=== PATIENT | male | born 1945 | race Caucasian/White ===

== ENCOUNTER 2018-07-13 09:01 | Day surgery (SDC) | payer MEDICARE, OTHER ==
[~2018-07-13 09:01] MED LIST: BUPIVACAINE HCL 0.75% INJ/PF (7.5 MG/1 ML) 10 ML SDV OD PRN; KETOROLAC TROMETHAMINE 0.45% 4 DROP/0.4 ML DROPERETTE OD PRN; LIDOCAINE 4% INJ/PF (40 MG/ML) 5 ML AMPUL OD PRN
[2018-07-13] MEDS ORDERED: CHONDR SU A NA/HYALUR INTRAOC KIT (SURGICARE) ONE (09:03)
[2018-07-13] MEDS ORDERED: EPINEPHRINE INJ/PF 1 MG/1 ML AMPULE ONE (09:03)
[2018-07-13] MEDS: TETRACAINE HCL 0.5% OPH SOLN 0.6 ML DROPERETTE OD PRN ×2 (10:04→10:33)
[2018-07-13] MEDS: CYCLOPENTOLATE 0.2%/PHENYLEPHRINE 1% OPH SOLN 2 ML OD PRN ×3 (10:05→10:30)
[2018-07-13] MEDS: TROPICAMIDE 1% OPH SOLN 3 ML OD PRN ×3 (10:05→10:30)
[2018-07-13] MEDS: BESIFLOXACIN HCL 0.6% OPH SUSP 5 ML BOTTLE OD PRN ×4 (10:05→11:20)
[2018-07-13] MEDS ORDERED: MIDAZOLAM 2 MG/2 ML INJ ONE (10:37)
[2018-07-13] MEDS ORDERED: FENTANYL CITRATE INJ/PF 100 MCG/2 ML AMPUL ONE (10:37)
[2018-07-13] MEDS: LIDOCAINE 1% INJ-PF (10 MG/ML) 30 ML SDV ONE ×2 (11:05)
--- NOTE | 2018-07-13 11:46 | [facility] DISCHARGE SUMMARY E ---
[facility] Discharge Summary NAME: PITER HERRMANN AGE: 73Y ADMITTED: 07/13/2018 DISCHARGED: 07/13/2018 HOSPITAL COURSE: The patient is a 73-year-old gentleman who underwent uneventful cataract extraction with Symfony toric IOL, right eye, on 07/13/2018. He will be discharged to home. He was instructed to resume preoperative medications, to take Tylenol as needed for discomfort, to keep his eye shielded, to use Besivance, Prolensa, and Durezol at 3:00 p.m. and 8:00 p.m., and to follow up in my office in 1 day. DICTATING PHYSICIAN: RENETTA BEACH M.D. [id number] PHY#: [id number] ID: [id number] JOB#: [id number] ACCT: [id number] cc:RENETTA BEACH M.D. >
--- NOTE | 2018-07-13 11:46 | [facility] OPERATIVE REPORT E ---
[facility] Operative Report NAME: PITER HERRMANN AGE: 73Y DATE OF SURGERY: 07/13/2018 ROOM: PREOPERATIVE DIAGNOSIS: Cataract, right eye. POSTOPERATIVE DIAGNOSIS: Cataract, right eye. PROCEDURE PERFORMED: Phacoemulsification with Symfony toric intraocular lens, right eye. SURGEON: RENETTA BEACH M.D. ANESTHESIA: Topical with MAC. DESCRIPTION OF PROCEDURE: The patient was brought to the operating room and placed on the operative table. Following tetracaine drops, topical anesthesia was administered. This consisted of instrument wipe pledgets soaked in a solution of 4% Xylocaine mixed with 0.75% Marcaine in a 1:2 ratio. A 2 x 1 cm pledget was placed in the superior fornix. A 1 x 1 cm pledget was placed in the inferior fornix. The eye was patched shut for 5 minutes. The patch was removed. The eye was sterilely prepped and draped in the usual manner. Lid speculum was placed in the eye. The pledgets were removed, 4-0 black silk sutures were placed around the superior and the inferior rectus muscles to be used as traction. A conjunctival peritomy was made at the 10 o'clock position. Hemostasis was obtained with bipolar cautery. A posterior limbal groove was created using a crescent knife and dissected anteriorly towards the cornea. A sharp point blade was used to create a paracentesis site at the 2 o'clock position. A 2.4 mm keratome was used to enter the anterior chamber through the groove. Viscoelastic was injected into the anterior chamber. An anterior capsulotomy was performed using Utrata forceps in a capsulorrhexis fashion. Hydrodissection and hydrodelineation were performed. Phacoemulsification was performed in azdwyx-imn-jeehykm technique. Total phaco time, 5.54 CDE. Following this, the I/A unit was used to remove residual cortex. Viscoelastic was injected into the capsular bag. Intraocular lens Model [id number], 21.5 diopters, serial number [id number] was placed in the capsular bag. The I/A unit was used to remove residual viscoelastic. The wound was seen to be watertight under high and low pressure, and no sutures were placed. The intraocular lens was well centered. The pressure was adjusted in the eye to normal pressure. The 4-0 black silk sutures and lid speculum were removed. The eye was shielded after Besivance drops were placed. The patient tolerated the procedure well and was sent to the recovery room in good condition. DICTATING PHYSICIAN: RENETTA BEACH M.D. [id number] PHY#: [id number] ID: [id number] JOB#: [id number] ACCT: [id number] cc:RENETTA BEACH M.D. >
== END 2018-07-13 12:05 | disposition home or self-care (01) ==
LOC: SC 09:01
PROVIDERS: ATTEND Ophthalmology
DX: H25.813 Combined forms of age-related cataract, bilateral (principal); I10 Essential (primary) hypertension; E11.9 Type 2 diabetes mellitus without complications; H04.123 Dry eye syndrome of bilateral lacrimal glands; Z87.891 Personal history of nicotine dependence; Z79.899 Other long term (current) drug therapy; Z79.84 Long term (current) use of oral hypoglycemic drugs; I25.2 Old myocardial infarction
CPT/HCPCS: 66984; 82962; V2788; J2250; J3490 ×4; A9270; J0171; J3010; 142

== ENCOUNTER 2018-07-27 08:40 | Day surgery (SDC) | payer MEDICARE, OTHER ==
[~2018-07-27 08:40] MED LIST changes: -BUPIVACAINE HCL 0.75% INJ/PF (7.5 MG/1 ML) 10 ML SDV OD PRN; +BUPIVACAINE HCL 0.75% INJ/PF (7.5 MG/1 ML) 10 ML SDV OS PRN; -KETOROLAC TROMETHAMINE 0.45% 4 DROP/0.4 ML DROPERETTE OD PRN; +KETOROLAC TROMETHAMINE 0.45% 4 DROP/0.4 ML DROPERETTE OS PRN; -LIDOCAINE 4% INJ/PF (40 MG/ML) 5 ML AMPUL OD PRN; +LIDOCAINE 4% INJ/PF (40 MG/ML) 5 ML AMPUL OS PRN
[2018-07-27] MEDS ORDERED: MIDAZOLAM 2 MG/2 ML INJ ONE (09:04)
[2018-07-27] MEDS: TROPICAMIDE 1% OPH SOLN 3 ML OS PRN ×3 (09:42→10:05)
[2018-07-27] MEDS: BESIFLOXACIN HCL 0.6% OPH SUSP 5 ML BOTTLE OS PRN ×3 (09:42→10:59)
[2018-07-27] MEDS: CYCLOPENTOLATE 0.2%/PHENYLEPHRINE 1% OPH SOLN 2 ML OS PRN ×3 (09:42→10:05)
[2018-07-27] MEDS: TETRACAINE HCL 0.5% OPH SOLN 0.6 ML DROPERETTE OS PRN ×2 (09:42→10:05)
[2018-07-27] MEDS ORDERED: EPINEPHRINE INJ/PF 1 MG/1 ML AMPULE ONE (09:57)
[2018-07-27] MEDS ORDERED: CHONDR SU A NA/HYALUR INTRAOC KIT (SURGICARE) ONE (09:58)
[2018-07-27] MEDS ORDERED: LIDOCAINE 1% INJ-PF (10 MG/ML) 30 ML SDV ONE (09:58)
--- NOTE | 2018-07-27 16:05 | [facility] OPERATIVE REPORT E ---
[facility] Operative Report NAME: PITER HERRMANN AGE: 73Y DATE OF SURGERY: 07/27/2018 ROOM: PREOPERATIVE DIAGNOSIS: CATARACT, LEFT EYE. POSTOPERATIVE DIAGNOSIS: CATARACT, LEFT EYE. PROCEDURE PERFORMED: PHACOEMULSIFICATION WITH POSTERIOR CHAMBER SYMFONY TORIC IOL, LEFT EYE. SURGEON: RENETTA BEACH MD ANESTHESIA: TOPICAL WITH MAC. PROCEDURE: The patient was brought to the Operating Room and placed on the operative table. Patient was placed in the seated position. The 0270 180-degree axis of the eye was marked using a marking level. Following tetracaine drops, topical anesthesia was administered. This consisted of instrument wipe pledgets soaked in a solution of 4% Xylocaine mixed with 0.75% Marcaine in a 1:2 ratio. A 2 x 1 cm pledget was placed in the superior fornix. A 1 x 1 cm pledget was placed in the inferior fornix. The eye was patched shut for 5 minutes. The patch was removed. The eye was sterilely prepped and draped in the usual manner. Lid speculum was placed in the eye. The pledgets were removed. 4-0 black silk sutures were placed around the superior and the inferior rectus muscles to be used as traction. A conjunctival peritomy was made at the 10 o'clock position. Hemostasis was obtained with bipolar cautery. A posterior limbal groove was created using a crescent knife and dissected anteriorly towards the cornea. A sharp point blade was used to create a paracentesis site at the 2 o'clock position. A 2.4 mm keratome was used to enter the anterior chamber through the groove. Viscoelastic was injected into the anterior chamber. An anterior capsulotomy was performed using Utrata forceps in a capsulorrhexis fashion. Hydrodissection and hydrodelineation were performed. Phacoemulsification was performed in xvzdin-iob-gskaydz technique. A total of 6.59 CDE phaco time was used. Prior to placing the lens implants, *------* axis was marked on the eye and the lens was centered at this axis. Following this, the I/A unit was used to remove residual cortex. Viscoelastic was injected into the capsular bag. Intraocular lens model [id number], 21.5 diopters, serial number [id number] was placed in the capsular bag. The I/A unit was used to remove residual viscoelastic. The wound was seen to be watertight under high and low pressure, and no sutures were placed. The intraocular lens was well centered. The pressure was adjusted in the eye to normal pressure. The 4-0 black silk sutures and lid speculum were removed. The eye was shielded after Besivance drops were placed. The patient tolerated the procedure well and was sent to the Recovery Room in good condition. DICTATING PHYSICIAN: RENETTA BEACH M.D. DICTATING PHYSICIAN: RENETTA BEACH M.D. [id number] PHY#: [id number] ID: [id number] JOB#: [id number] ACCT: [id number] cc:RENETTA BEACH M.D. >
--- NOTE | 2018-07-27 16:16 | [facility] DISCHARGE SUMMARY E ---
[facility] Discharge Summary NAME: PITER HERRMANN AGE: 73Y ADMITTED: 07/27/2018 DISCHARGED: 07/27/2018 FINAL DIAGNOSIS: CATARACT, LEFT EYE HOSPITAL COURSE: The patient is a 73-year-old gentleman who underwent uneventful cataract extraction with Symfony Toric intraocular lens on 07/27/18. He will be discharged to home. He is instructed to resume preoperative medications, take Tylenol as needed for discomfort, to keep his eye shielded, to use Predforte, Ketorolac, and Vigamox 3 p.m. and 8 p.m., and to follow up in my office in 1 day. DICTATING PHYSICIAN: RENETTA BEACH M.D. [id number] PHY#: [id number] ID: [id number] JOB#: [id number] ACCT: [id number] cc:RENETTA BEACH M.D. >
== END 2018-07-27 11:47 | disposition home or self-care (01) ==
LOC: SC 08:40
PROVIDERS: ATTEND Ophthalmology
DX: H25.812 Combined forms of age-related cataract, left eye (principal); Z96.1 Presence of intraocular lens; E11.9 Type 2 diabetes mellitus without complications; I10 Essential (primary) hypertension; Z79.84 Long term (current) use of oral hypoglycemic drugs; Z79.899 Other long term (current) drug therapy; Z79.02 Long term (current) use of antithrombotics/antiplatelets; I25.2 Old myocardial infarction; Z79.82 Long term (current) use of aspirin
CPT/HCPCS: 66984; 82962; V2788; J2250; J3490 ×4; A9270; J0171; 142

== ENCOUNTER 2020-08-18 20:10 | Emergency (ER) | payer MEDICARE, OTHER ==
[2020-08-18] MEDS ORDERED: DIPH/PERTUSS(ACELL)/TETANUS VAC/PF 0.5 ML SYR (>=10YO) IM ONE (20:32)
[2020-08-18] MEDS ORDERED: HYDROCODONE/ACETAMINOPHEN 5-325 MG TABLET PO ONE (20:32)
--- NOTE | 2020-08-18 20:34 | ER Document Report ---
ED Medical Screen (RME) - General Chief Complaint: Finger Injury Stated Complaint: FINGER INJURY Time Seen by Provider: 08/18/20 20:31 Primary Care Provider: NARGIS AUSTIN MD [Primary Care Provider] - Follow up as needed Mode of Arrival: Ambulatory Information source: Patient Notes: HPI; 75-year-old male presents to the emergency room after trip and fall at home injuring his left index finger, his right forearm, and bilateral knees. Denies hitting his head. Denies any loss of consciousness. Unknown last tetanus shot. Also complaining of chest pain that started in route to the emergency room. States he took 1 nitro with some relief. PE: Alert and oriented x3. Moderate distress noted. Lungs: Clear to auscultation without rales, rhonchi, wheezes. Heart: Regular rate rhythm without murmurs, rubs, gallops. There is an obvious dislocation fracture noted to the distal aspect of the left index finger. Multiple abrasions noted. Cardiac work-up was initiated no EKG upon arrival as patient did not complain of chest pain until he was in the triage room. I have greeted and performed a rapid initial assessment of this patient. A comprehensive ED assessment and evaluation of the patient, analysis of test results and completion of the medical decision making process will be conducted by additional ED providers. I have specifically instructed the patient or family members with the patient to immediately return to any nursing staff should anything change in the patient's condition or with their chief complaint. TRAVEL OUTSIDE OF THE [place] IN LAST 30 DAYS: No - Related Data Allergies/Adverse Reactions: No Known Allergies Allergy (Verified 07/27/18 10:00) Past Medical History - Past Medical History Cardiac Medical History: Reports: Hx Heart Attack, Hx Hypertension Pulmonary Medical History: Denies: Hx Asthma Neurological Medical History: Denies: Hx Cerebrovascular Accident, Hx Seizures GI Medical History: Denies: Hx Hepatitis, Hx Hiatal Hernia, Hx Ulcer Infectious Medical History: Denies: Hx Hepatitis Past Surgical History: Reports: Hx Open Heart Surgery - stents. Denies: Hx Pacemaker Physical Exam - Vital signs Vitals: Temp Pulse Resp BP Pulse Ox 97.7 F 67 17 127/61 H 98 08/18/20 20:26 08/18/20 20:26 08/18/20 20:26 08/18/20 20:26 08/18/20 20:26 Course - Vital Signs Vital signs: Temp Pulse Resp BP Pulse Ox 97.7 F 67 17 127/61 H 98 08/18/20 20:26 08/18/20 20:26 08/18/20 20:26 08/18/20 20:26 08/18/20 20:26 Doctor's Discharge - Discharge Referrals: NARGIS AUSTIN MD [Primary Care Provider] - Follow up as needed
--- NOTE | 2020-08-18 21:01 | EKG REPORT ---
SEVERITY:- ABNORMAL ECG - NSR 80/MIN, FIRST DEGREE AVB COMPLETE LBBB. : Confirmed by: Surinder Miller MD 18-Aug-2020 21:00:35
[2020-08-18 21:18] LABS: ABSOLUTE EOSINOPHILS # (AUTO) 0.3 10^3/uL (0.0-0.6); ABSOLUTE LYMPHOCYTES (AUTO) 1.9 10^3/uL (0.5-4.7); ABSOLUTE MONOCYTES (AUTO) 0.6 10^3/uL (0.1-1.4); ABSOLUTE NEUT (AUTO) 5.1 10^3/uL (1.7-8.2); BASOPHILS % (AUTO) 0.6 % (0-2); EOSINOPHILS % (AUTO) 3.4 % (0-6); HEMOGLOBIN 13.9 g/dL (13.5-17.0); LYMPHOCYTES % (AUTO) 24.4 % (13-45); MEAN CORPUSCULAR HEMOGLOBIN 31.3 pg (27.0-33.4); MEAN CORPUSCULAR HGB CONC 34.7 g/dL (32.0-36.0); MEAN CORPUSCULAR VOLUME 90 fl (80-97); PLATELET COUNT 212 10^3/uL (150-450); RED BLOOD COUNT 4.44 10^6/uL (4.35-5.55); RED CELL DISTRIBUTION WIDTH 13.1 % (11.5-14.0); SEGMENTED NEUTROPHILS % (AUTO) 64.6 % (42-78); TOTAL CELLS COUNTED % (AUTO) 100 %; WHITE BLOOD COUNT 7.9 10^3/uL (4.0-10.5)
[2020-08-18 21:31] LABS: ALBUMIN 3.9 g/dL (3.5-5.0); ALKALINE PHOSPHATASE 110 U/L (38-126); ANION GAP 10 (5-19); ASPARTATE AMINO TRANSFERASE 20 U/L (17-59); BILIRUBIN,DIRECT 0.3 mg/dL (0.0-0.4); BILIRUBIN,TOTAL 0.7 mg/dL (0.2-1.3); BLOOD UREA NITROGEN 21 mg/dL (7-20); CALCIUM 9.2 mg/dL (8.4-10.2); CARBON DIOXIDE 25 mmol/L (22-30); CHLORIDE 102 mmol/L (98-107); CREATINE KINASE 71 U/L (55-170); GLUCOSE 349 mg/dL (75-110); POTASSIUM 4.7 mmol/L (3.6-5.0); TOTAL PROTEIN 6.9 g/dL (6.3-8.2)
--- NOTE | 2020-08-18 21:33 | RADIOLOGY REPORT (SQ) ---
EXAM DESCRIPTION: XR FINGERS COMPLETED DATE/TME: 08/18/2020 20:32 CLINICAL HISTORY: 75 years, Male, left index finger injury COMPARISON: None. NUMBER OF VIEWS: 3 TECHNIQUE: 3 views of the left hand and second finger were obtained. LIMITATIONS: None. FINDINGS: There is a mildly displaced fracture of the posterior lateral base of the second distal phalanx with intra-articular extension. There is approximately 1 mm distraction of the fracture fragments. Additional subtle transverse lucency across the remaining portions of the second distal phalangeal base is suspicious for additional nondisplaced fracture as well. There is no dislocation. There is apparent bandaging material about the distal aspect of the second finger and there is a small amount of gas projecting over the volar subcutaneous fat at the second DIP joint level. There is no lytic or blastic bone lesion. There is a 2 mm metallic foreign body within the lateral soft tissues adjacent to the second proximal phalangeal neck. There is also a 1 mm foreign body within the soft tissues between the first and second metacarpals. No soft tissue gas is seen adjacent to these foreign bodies in these may be chronic. IMPRESSION: 1. Mildly displaced fractures at the second distal phalangeal base with intra-articular extension. No dislocation. Apparent bandaging material and small amount of soft tissue gas are noted about the distal second finger suggesting soft tissue injury as well. 2. Small foreign bodies about the more proximal aspect of the second finger and between the first and second metacarpals, possibly chronic although clinical correlation is advised. copyright 2010 [employer]- All Rights Reserved
[2020-08-18 21:43] LABS: CREATINE KINASE MB 2.35 ng/mL (<4.55); TROPONIN I < 0.012 ng/mL
[2020-08-18] MEDS ORDERED: LIDOCAINE 1% INJ-PF (10 MG/ML) 30 ML SDV INJ ONE (22:23)
[2020-08-18] MEDS ORDERED: BUPIVACAINE HCL 0.5 % INJ/PF 30 ML SDV INJ ONE (22:23)
--- NOTE | 2020-08-18 22:25 | ER Document Report ---
ED Fall - General Chief Complaint: Fall Injury Stated Complaint: FINGER INJURY Time Seen by Provider: 08/18/20 20:31 Primary Care Provider: NARGIS AUSTIN MD [Primary Care Provider] - Follow up as needed NELLY MENDEZ MD [ACTIVE STAFF] - 08/20/20 Mode of Arrival: Ambulatory Information source: Patient Notes: Patient is a 75-year-old male who presents emergency department with a chief complaint of left second digit pain. Patient states that he was walking in the yard and ended up tripping and falling on his knees and on his finger. Patient is currently on Plavix. In route from EMS, the patient developed chest pain. Patient states that the chest pain has gone away. He took a nitroglycerin at home. States that the pain is there because he overexerted himself. He states this happens when he overexerts himself. Patient has history of heart attacks in the past. States that he has multiple stents in his heart. Patient denies hitting his head. Denies any loss of consciousness. TRAVEL OUTSIDE OF THE [place] IN LAST 30 DAYS: No - Related data Allergies/Adverse Reactions: No Known Allergies Allergy (Verified 07/27/18 10:00) Home Medications: Plavix. NTG. lisinopril. metoprolol. Renxia. Glipiside Past Medical History - General Information source: Patient - Social History Smoking Status: Never Smoker Chew tobacco use (# tins/day): No Frequency of alcohol use: None Drug Abuse: None Family History: Reviewed & Not Pertinent - Past Medical History Cardiac Medical History: Reports: Hx Heart Attack, Hx Hypertension Pulmonary Medical History: Denies: Hx Asthma Neurological Medical History: Denies: Hx Cerebrovascular Accident, Hx Seizures GI Medical History: Denies: Hx Hepatitis, Hx Hiatal Hernia, Hx Ulcer Infectious Medical History: Denies: Hx Hepatitis Past Surgical History: Reports: Hx Open Heart Surgery - stents. Denies: Hx Pacemaker Review of Systems - Review of Systems Notes: REVIEW OF SYSTEMS: CONSTITUTIONAL : Denies recent illness. Denies recent unintentional weight loss. Denies fever, chills, or sweats. EENT: Denies eye, ear, throat, or mouth pain, discharge, or symptoms. Denies nasal or sinus congestion. CARDIOVASCULAR: Denies chest pain. RESPIRATORY: Denies shortness of breath, cough, congestion, difficulty breathing, or wheezing. GASTROINTESTINAL: Denies nausea, vomiting, and diarrhea. Denies abdominal pain. Denies constipation. GENITOURINARY: Denies difficulty urinating, burning, blood in urine, urgency or frequency. MUSCULOSKELETAL: Denies neck and back pain. See HPI. SKIN: See HPI. HEMATOLOGIC : Denies easy bruising or bleeding. LYMPHATIC: Denies swollen, painful, enlarged glands. NEUROLOGICAL: Denies no numbness or tingling denies weakness. Denies headache. Denies altered mental status. Denies alteration in speech. PSYCHIATRIC: Denies stress, anxiety, alteration in sleep patterns, or depression. All other systems reviewed and negative. Physical Exam - Vital signs Vitals: Temp Pulse Resp BP Pulse Ox 97.7 F 67 17 127/61 H 98 08/18/20 20:26 08/18/20 20:26 08/18/20 20:26 08/18/20 20:26 08/18/20 20:26 - Notes Notes: PHYSICAL EXAMINATION: GENERAL: Appears well, healthy, well-nourished, no acute distress. HEAD: Normocephalic, atraumatic. EYES: PERRL, conjunctiva normal, all extraocular movements intact, sclera nonicteric ENT: Moist mucous membranes. NECK: Supple, no noticeable swelling, redness, rash. Normal range of motion. LUNGS: Equal breath sounds bilaterally and clear to auscultation. No wheezes rales or rhonchi. CARDIOVASCULAR: S1-S2, regular rate, regular rhythm. Radial pulses 2+, normal. ABDOMEN: Normoactive bowel sounds. Soft, nontender, no guarding, no rebound tenderness, and no masses palpated. EXTREMITIES: Normal strength and range of motion, no pitting or edema. No cyan osis. Laceration noted to left distal second digit. NEUROLOGICAL: Moves all extremities upon command. Strength 5/5 in all extremities. PSYCH: Normal mood, normal affect. SKIN: Warm, dry. Abrasions noted to bilateral knees and right posterior forearm. Course - Re-evaluation Re-evalutation: 08/18/20 22:26 Patient refused to be placed on the gambling monitor. He told the nurse that he did not think that his heart was a problem. I explained to the patient that a CT of the head and neck are protocol for anybody who has fallen and is not on blood thinners. He states that he does not want a CT of the head. He is awake and alert and oriented. He is able to make his own decisions.Hematology is unremarkable. Hematology is unremarkable. Chemistries show an elevated glucose of 349, there is no evidence of diabetic ketoacidosis. Troponin is negative. 08/19/20 00:09 Sutures placed. See procedure note. Patient is able to flex digit with no difficulty. Have a low suspicion for tendon injury. Advised patient follow-up with orthopedics. Patient has an orthopedic doctor. Advised him to follow-up with them or Dr. Mendez, who is on-call. He is in agreement with this plan. Advised him to follow-up if he develops confusion, as he did not get a CT of the head or neck. Patient refused second troponin. Patient does have a fracture noted. We will place him on Augmentin. Follow-up precautions were given. Ve rbal discharge instructions were given to the patient. They verbalized understanding. They are stable for discharge. - Vital Signs Vital signs: Temp Pulse Resp BP Pulse Ox 98.7 F 63 14 139/68 H 99 08/19/20 00:31 08/19/20 00:31 08/19/20 00:31 08/19/20 00:31 08/19/20 00:31 - Laboratory Result Diagrams: 08/18/20 20:59 08/18/20 20:59 Laboratory results interpreted by me: 08/18/20 20:59 Sodium 136.6 L BUN 21 H Glucose 349 H - EKG Interpretation by Me Additional EKG results interpreted by me: First-degree AV block with a left bundle branch block. Rate 80. DC 147; QRS 164; QT 374; QTc 611. Procedures - Laceration/Wound Repair Left Distal Finger 2nd digit Wound length (cm): 2 Wound's Depth, Shape: Linear. No: Nail-avulsed Laceration pre-procedure: Sterile PPE donned, Sterile drapes applied, Shur-Clens applied Anesthetic type: 0.5% Bupivacaine - And 1% lidocaine Volume Anesthetic (mLs): 15 Wound explored: Clean, No foreign body removed Irrigated w/ Saline (mLs): 250 Wound Repaired With: Sutures Suture Size/Type: 5:0, Nylon Number of Sutures: 7 Post-procedure wound care: Sterile dressing applied, Splint applied - Finger Post-procedure NV exam normal: Yes Complications: No Hands front picture: 1 - Laceration Discharge - Discharge Clinical Impression: Chest pain Qualifiers: Chest pain type: unspecified Qualified Code(s): R07.9 - Chest pain, unspecified Finger fracture, left Qualifiers: Encounter type: initial encounter Finger: index finger Fracture type: open Phalanx: distal Fracture alignment: nondisplaced Qualified Code(s): S62.661B - Nondisplaced fracture of distal phalanx of left index finger, initial encounter for open fracture Condition: Stable Disposition: HOME, SELF-CARE Additional Instructions: You were seen today in the emergency department for a finger laceration. It was repaired here in the emergency department. You also have a broken finger. Wear the splint until you see orthopedics. Apply triple antibiotic to your abrasions. You can take Tylenol as needed for pain. Take the antibiotic as prescribed. Follow-up with orthopedics on Thursday. Please follow-up with your security program manager for your chest pain. You did not want the CT of the head, which is what I recommend. If you develop any confusion, weakness, numbness or tingling, or any symptoms that are worrisome to you, please return to the emergency department. Prescriptions: Amoxicillin/Potassium Clav [Augmentin 875-125 Tablet] 1 tab PO BID #14 tab Referrals: NARGIS AUSTIN MD [Primary Care Provider] - Follow up as needed NELLY MENDEZ MD [ACTIVE STAFF] - 08/20/20
[2020-08-19] MEDS ORDERED: AMOXICILLIN TR/POT CLAVULANATE 875-125 MG TAB PO ONE (00:13)
[2020-08-19 00:33] VITALS: BP 139/68
== END 2020-08-19 00:33 | disposition home or self-care (01) ==
LOC: ER 20:10
DX: S62.661B Nondisplaced fracture of distal phalanx of left index finger, initial encounter for open fracture (principal); S80.212A Abrasion, left knee, initial encounter; S80.211A Abrasion, right knee, initial encounter; S50.811A Abrasion of right forearm, initial encounter; R07.9 Chest pain, unspecified; W01.0XXA Fall on same level from slipping, tripping and stumbling without subsequent striking against object, initial encounter; I10 Essential (primary) hypertension; I25.2 Old myocardial infarction; Z23 Encounter for immunization
CPT/HCPCS: 12001; 93005; 99285; 90471; 36415; 82553; 82550; 85025; 80053; 84484; 73140; 90715; 93010; J3490 ×3